=== PATIENT | male | born 1980 | race African-American/Black ===

== ENCOUNTER 2022-08-17 11:10 | Emergency (ER) | payer OTHER ==
[~2022-08-17] VITALS: Ht 190.5 cm; Wt 100.2 kg
[2022-08-17 11:14] VITALS: BP 132/91
--- NOTE | 2022-08-17 11:18 | NUR ---
PT AMBULATED TO BED 5
--- NOTE | 2022-08-17 11:22 | NUR ---
MONSE Gomez evaluating patient at bedside.
[2022-08-17] MEDS ORDERED: KETOROLAC 60 MG/2 ML VIAL IM ONE (11:30)
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
--- NOTE | 2022-08-17 11:57 | NUR ---
X-Ray at bedside.
--- NOTE | 2022-08-17 13:19 | NUR ---
MONSE Gomez re-evaluating patient at bedside.
--- NOTE | 2022-08-17 13:20 | NUR ---
SLING APPLIED TO L ARM. + CMS
[2022-08-17] MEDS ORDERED: ACET500C86 PO (13:21)
[2022-08-17] MEDS ORDERED: IBUP-2213 PO (13:21)
[2022-08-17 13:31] VITALS: BP 148/85
--- NOTE | 2022-08-17 13:31 | NUR ---
Patient discharged with v/s stable. Written and verbal after care instructions given. Patient alert, oriented and verbalized understanding of instructions. Ambulatory with steady gait. All questions addressed prior to discharge. ID band removed. Patient advised to follow up with PMD. Rx of Acetaminophen and Ibuprofen given. Opportunity to ask questions provided and answered.
--- NOTE | 2022-08-17 13:58 | NUR ---
The patient's care was reviewed and supervised by HARSH NAVAS RN, RN.
== END 2022-08-17 13:31 | disposition home or self-care (01) ==
LOC: MED 11:10
DX: S20.20XA Contusion of thorax, unspecified, initial encounter (principal); S50.02XA Contusion of left elbow, initial encounter; Z79.899 Other long term (current) drug therapy; V89.2XXA Person injured in unspecified motor-vehicle accident, traffic, initial encounter; Y93.89 Activity, other specified; Y92.89 Other specified places as the place of occurrence of the external cause; Y99.8 Other external cause status
CPT/HCPCS: 71101; 73080; 96372; 99284; J1885